=== PATIENT | female | born 1965 | race American Indian/Alaskan Native ===

== ENCOUNTER 2017-06-18 06:07 | Day surgery (SDC) | payer OTHER ==
[2017-06-18] MEDS ORDERED: Lactated Ringer's 1,000 ML IV ONE (08:05)
[2017-06-18] MEDS ORDERED: Propofol 10 mg/ml Inj (20 ML) ONE (08:06)
--- NOTE | 2017-06-18 08:09 | CP.SDSHP ---
Same Day Surgery H & P - History Proposed Procedure: colonoscopy Pre-Op Diagnosis: screening for colon cancer - Previous Medical/Surgical History Cardiac: Hypertension, Other (hypercholesterolemia, DJD) Pulmonary: Bronchitis Endocrine/Metabolic: Thyroid Disease, Obesity Previous Surgical History: thyroidectomy - Allergies Allergies: Allergies No Known Allergies Allergy (Verified 06/17/17 11:17) - Physical Exam Vital Signs: Vital Signs 06/18/17 06:39 Temperature 98 F Pulse Rate 55 L Respiratory 18 Rate Blood Pressure 155/85 H O2 Sat by Pulse 99 Oximetry Mental Status: Alert & Oriented x3 Neuro: WNL Heart: WNL Lungs: WNL GI: WNL - Impression Impression: screening for colon cancer Pt. Evaluated Today:Candidate for Anesthesia & Procedure: Yes - Date & Time Date: 06/18/17 Time: 08:09 Short Stay Discharge - Short Stay Discharge Admitting Diagnosis/Reason for Visit: SCREENING Disposition: HOME/ ROUTINE
[2017-06-18 08:51] VITALS: O2SAT 100
[2017-06-18 09:54] VITALS: BP 182/81; PULSE 60; RESP 20; TEMP 97.3
== END 2017-06-18 09:45 | disposition home or self-care (01) ==
LOC: C.ENDO 06:07
PROVIDERS: ATTEND Internal Medicine Gastroenterology
DX: Z12.11 Encounter for screening for malignant neoplasm of colon (principal); D12.7 Benign neoplasm of rectosigmoid junction; D12.3 Benign neoplasm of transverse colon; K57.30 Diverticulosis of large intestine without perforation or abscess without bleeding; E66.9 Obesity, unspecified; E78.00 Pure hypercholesterolemia, unspecified; I10 Essential (primary) hypertension; M19.90 Unspecified osteoarthritis, unspecified site
CPT/HCPCS: 45380; 88305; J2001; J2704; J7120

== ENCOUNTER 2018-04-10 17:45 | Outpatient (CLI) | payer OTHER | END 2018-04-10 17:46 | disposition home or self-care (01) | LOC: C.SLEEP 17:46 | DX: G47.33 Obstructive sleep apnea (adult) (pediatric) (principal) ==